=== PATIENT | male | born 1945 | race Caucasian/White ===

== ENCOUNTER → 2018-08-07 | Outpatient (CLI) | payer BC ==
[~2018-08-07] MED LIST: ASPI-482 PO; ATOR40TA59 PO; CARV6.2511 PO; LOSA100T14 PO
--- NOTE | 2018-08-07 12:09 | RAD ---
Ultrasound-guided left thyroid biopsy, 08/07/2018: HISTORY: Left thyroid nodule Previous imaging demonstrated a large solid nodule in the left lobe of the gland. Under local anesthesia, aseptic conditions and sonographic guidance a 25-gauge needle was passed into this nodule via a anterolateral approach. 4 separate 25-gauge aspirates were obtained in this manner with the materials sent to pathology for evaluation. Hemostasis was then obtained. The patient tolerated the procedure well and left the department in good condition. The pathology results are pending. Electronically signed by: Ab Espinoza MD (08/07/2018 12:06 PM) [facility]
--- NOTE | 2018-08-10 18:06 | PATHOLOGY ---
Note [facility] Accession Number: [id number] TESTS RESULT FLAG UNITS REF RANGE LAB Clinician Provided Cytology Information No. of containers..01 Other (Miscellaneous) Source: THYROID DIAGNOSIS: LT THYROID INCONCLUSIVE FOLLICULAR LESION OF UNDETERNMINED SIGNIFICANCE. CELLULAR ASPIRATE CONSISTS OF CLUSTERS OF FOLLICULAR CELLS WITH SOME MICROFOLLICLES AND FEW HURTHLE CELLS WITH MITH MILD ATYPIA, COLLOID, AND BLOOD. THE DIFFERENTIAL DIAGNOSIS INCLUDES ADENOMATOUS NODULE AND FOLLICULAR NEOPLASM.THE CASE IS ALSO EXAMINED BY DR TAVERAS, CYTOPATHOLOGIST, WHO CONCURS WITH THE DIAGNOSIS. THIS INTERPRETATION INCLUDES EVALUATION OF A CELL BLOCK. Pathologist ICD10: 02 E04.1 Signed out by: Shiraz Becerra MD, Pathologist NPI- [id number] Performed by: Jyothi Syed, Volunteer Assistant ([facility]) Gross description: 01 30ML, RED, CLEAR /LCS FLAG LEGEND: L-Low Normal,H-High Normal,LL-Alert Low,HH-Alert High <-Panic Low,>-Panic High,A-Abnormal,AA-Critical Abnormal Performed at: [facility] [address] [place] [address] Vasquez Hackett MD, [address] [facility] [address] [place] [address] Shiraz Becerra MD, Specimen Comment: A courtesy copy of this report has been sent to Specimen Comment: [phone], . Specimen Comment: Report sent to / DR FLEMING Specimen Comment: A duplicate report has been generated due to demographic updates. Performed at: [address] [facility] [id number], [place] [id number] MD Vasquez Hackett MD Phone: [phone]
== END | disposition home or self-care (01) ==
LOC: US 09:53
PROVIDERS: ATTEND Nurse Practitioner Family
DX: E04.1 Nontoxic single thyroid nodule (principal); I10 Essential (primary) hypertension; Z95.5 Presence of coronary angioplasty implant and graft
CPT/HCPCS: 10005; 60300; 76942; 88173; 88305